=== PATIENT | female | born 1975 | race Caucasian/White ===

== ENCOUNTER 2019-03-18 14:37 | Inpatient (IN) | payer BC ==
[~2019-03-18] VITALS: Ht 144.8 cm; Wt 63.0 kg
[2019-03-18 14:49] VITALS: BP_SYST 172
--- NOTE | 2019-03-18 14:56 | NUR ---
Patient to ER bed 2 to gown for evaluation. Side rails up. Report given to Bart HANSEN.
--- NOTE | 2019-03-18 15:00 | NUR ---
Patient is awake, alert, and oriented x4. is at bedside. Patient reports that cyst started 2 weeks ago. She presents with a very large cyst in her left axila that is red in color. Pain made worse on palpation.
--- NOTE | 2019-03-18 15:29 | NUR ---
ER Dr. Stacy at bedside examining patient.
[2019-03-18] MEDS ORDERED: NACL 0.9% 2,000 ML IV ONE (15:45)
[2019-03-18] MEDS ORDERED: LIDOCAINE PF 1% 30ML(POUR BTL) INJ ONE (15:45)
[2019-03-18] MEDS ORDERED: INSULIN REGULAR, HUMAN 10 UNITS/0.1 ML INJ IVP ONE (15:45)
[2019-03-18] MEDS ORDERED: MORPHINE 4 MG/ML INJ. SYRINGE IVP ONE (15:45)
[2019-03-18] MEDS ORDERED: LIDOCAINE 1%, 20 ML MDV 20 ML ONE (16:09)
[2019-03-18 16:10] LABS: BASOPHILS # (AUTO) 0.1 K/uL (0.0-0.2); BASOPHILS % (AUTO) 0.4 % (0.0-2.0); EOSINOPHILS # (AUTO) 0.1 K/uL (0.0-0.4); EOSINOPHILS % (AUTO) 0.6 % (0.0-4.0); HEMATOCRIT 39.7 % (36-48); HEMOGLOBIN 12.8 g/dL (12.0-16.0); LYMPHOCYTES # (AUTO) 1.8 K/uL (1.0-5.5); LYMPHOCYTES % (AUTO) 11.5 % (20.5-51.5); MEAN CORPUSCULAR HEMOGLOBIN 26 pg (27-31); MEAN CORPUSCULAR HGB CONC 32 % (32-36); MEAN CORPUSCULAR VOLUME 79 fL (79.0-98.0); MONOCYTES # (AUTO) 0.8 K/uL (0.0-1.0); MONOCYTES % (AUTO) 5.5 % (1.7-9.3); NEUTROPHILS # (AUTO) 12.6 K/uL (1.8-7.7); PLATELET COUNT (AUTO) 467 K/uL (130-430); RED BLOOD CELL COUNT(AUTO) 5.01 MIL/uL (4.2-6.2); RED CELL DISTRIBUTION WIDTH 14.5 % (9.0-15.0); WHITE BLOOD COUNT (AUTO) 15.4 K/uL (4.8-10.8)
[2019-03-18 16:24] LABS: CALCIUM 9.1 mg/dL (8.4-11.0); CREATININE 0.88 mg/dL (0.55-1.30); POTASSIUM 3.5 mmol/L (3.5-5.1)
[2019-03-18 16:33] LABS: ALBUMIN 3.1 g/dL (3.4-4.8); TOTAL BILIRUBIN 0.3 mg/dL (0.0-1.0)
[2019-03-18] MEDS ORDERED: PIPERACILLIN/TAZO 3.375 GM in NS 50 ML IV ONE (17:00)
[2019-03-18] MEDS ORDERED: PIPERACILLIN/TAZOBACTAM 3.375 GM/VIAL (ZOSYN) IV ONE (17:14)
--- NOTE | 2019-03-18 18:15 | NUR ---
Patient will be admitted to [facility]. Admitted to Telemetry unit. Will go to room 125A. Summary report printed. Report will be given at bedside.
[2019-03-18 18:18] VITALS: BP_SYST 146
--- NOTE | 2019-03-18 18:18 | NUR ---
ADMISSION NOTE Received patient from ER via melvin, received report from DAPHNEY HANSEN. Patient admitted with diagnosis of AXILLARY ABCESS. Patient oriented to hospital routine, call light, toileting and safety-patient verbalized understanding.
[2019-03-18] MEDS: NACL 0.9% 1,000 ML IV SCH (18:37)
--- NOTE | 2019-03-18 19:05 | NUR ---
RN Note-closing patient resting in bed, family at bedside, no signs of distress, IV fluids running with no signs of infiltration, endorse report to noc shift nurse at the bedside to take wound pictures and do belongings inventory, all other admission interventions were done, no other needs at this time.
[2019-03-18 19:10] VITALS: BP_SYST 140
--- NOTE | 2019-03-18 19:10 | NUR ---
OPENING NOTE RECEIVED ENDORSEMENT REPORT FROM DAY NURSE MIRANDA AT BEDSIDE. PT IS AOX4. NO SOB NOTED. NO DISTRESS NOTED. CHEST RISE EVEN AND UNLABORED. NO S/S OF PAIN NOTED. PT DENIES PAIN AT THIS TIME. FAMILY AT BEDSIDE. IV CLEAN, DRY, PATENT AND INTACT. ORIENTED PT TO HOSPITAL ROOM AND HOW TO USE ROOM PHONE AND CALL LIGHT TO CALL FOR ASSISTANCE. PT VERBALIZED UNDERSTANDING. SAFETY MEASURES IN PLACE. CALL LIGHT/ROOM PHONE WITHIN REACH, BED WHEELS LOCKED, BED IN LOWEST POSITION, BED WHEELS LOCKED, SIDE RAILS UP X2, BEDSIDE TABLE WITHIN REACH. NO OTHER NEEDS AT THIS TIME. WILL CONTINUE TO MONITOR PT AND CONTINUE PT'S POC.
[2019-03-18] MEDS ORDERED: METF1000 PO (19:11)
[2019-03-18] MEDS ORDERED: GLIP10TA PO (19:11)
[2019-03-18] MEDS ORDERED: LISI10TA5 PO (19:11)
[2019-03-18] MEDS ORDERED: SIMV40TA2 PO (19:11)
[2019-03-18] MEDS ORDERED: ERGO500020 PO (19:11)
[2019-03-18] MEDS ORDERED: LEVO137T2 PO (19:11)
[2019-03-18] MEDS ORDERED: CEPH-568 PO (19:11)
[2019-03-18] MEDS ORDERED: D5W 1,000 ML IV PRN (20:26)
[2019-03-18] MEDS ORDERED: HYDROcodone/ACETAMIN 5-325 MG TAB (NORCO/ VICODIN) PO PRN (20:30)
[2019-03-18] MEDS ORDERED: GLUCOSE 15 GM GEL (in 37.5 GM TUBE) PO PRN (20:30)
[2019-03-18] MEDS ORDERED: DEXTROSE 50% JECT 50 ML DISP.SYRIN IVP PRN (20:30)
[2019-03-18] MEDS: SIMVASTATIN 40 MG TABLET PO SCH (20:44)
[2019-03-18] MEDS: INSULIN REGULAR, HUMAN 100 UNITS/ML, 10 ML VIAL (humuLIN R) SUBCUT PRN (20:48)
--- NOTE | 2019-03-18 20:59 | NUR ---
RN ROUNDS PT RESTING IN BED. NO SOB NOTED. NO DISTRESS NOTED. CHEST RISE EVEN AND UNLABORED. VITAL SIGNS WNL. SCHEDULED MEDICATIONS ADMINISTERED ORDERED, PT TOLERATED WELL. PT REPORTS 6/10 PAIN TO LEFT AXILIARY PRN NORCO ADMINISTERED ORDERED FOR PAIN. PT TOLERATED WELL. WILL MONITOR MEDICATION EFFECTIVENESS. NO OTHER NEEDS AT THIS TIME. SAFETY MEASURES IN PLACE. WILL CONTINUE TO MONITOR PT AND CONTINUE PT'S POC.
--- NOTE | 2019-03-18 22:30 | NUR ---
RN ROUNDS PT RESTING IN BED WITH EYES CLOSED. NO SOB NOTED. NO DISTRESS NOTED. CHEST RISE EVEN AND UNLABORED. NO NEEDS AT THIS TIME. SAFETY MEASURES IN PLACE. WILL CONTINUE TO MONITOR PT AND CONTINUE PT'S POC.
[2019-03-18] MEDS: PIPERACILLIN/TAZO 3.375/DEX-IS 50 ML IV SCH (23:38)
[2019-03-19 00:35] VITALS: BP_SYST 138
--- NOTE | 2019-03-19 02:30 | NUR ---
RN ROUNDS PT RESTING IN BED. NO SOB NOTED. NO DISTRESS NOTED. CHEST RISE EVEN AND UNLABORED. NO S/S OF PAIN NOTED. PT DENIES PAIN AT THIS TIME. NO NEEDS AT THIS TIME. SAFETY MEASURES IN PLACE. WILL CONTINUE TO MONITOR PT AND CONTINUE PT'S POC.
[2019-03-19 05:39] LABS: ALBUMIN 2.3 g/dL (3.4-4.8); CALCIUM 7.8 mg/dL (8.4-11.0); CREATININE 0.67 mg/dL (0.55-1.30); POTASSIUM 3.4 mmol/L (3.5-5.1); TOTAL BILIRUBIN 0.3 mg/dL (0.0-1.0)
[2019-03-19 05:55] LABS: BASOPHILS # (AUTO) 0.1 K/uL (0.0-0.2); BASOPHILS % (AUTO) 0.6 % (0.0-2.0); EOSINOPHILS # (AUTO) 0.2 K/uL (0.0-0.4); EOSINOPHILS % (AUTO) 1.4 % (0.0-4.0); HEMATOCRIT 33.9 % (36-48); HEMOGLOBIN 10.8 g/dL (12.0-16.0); LYMPHOCYTES # (AUTO) 2.7 K/uL (1.0-5.5); LYMPHOCYTES % (AUTO) 18.3 % (20.5-51.5); MEAN CORPUSCULAR HEMOGLOBIN 26 pg (27-31); MEAN CORPUSCULAR HGB CONC 32 % (32-36); MEAN CORPUSCULAR VOLUME 80 fL (79.0-98.0); MONOCYTES % (AUTO) 6.4 % (1.7-9.3); NEUTROPHILS # (AUTO) 10.8 K/uL (1.8-7.7); NEUTROPHILS % (AUTO) 73.3 % (40.0-70.0); PLATELET COUNT (AUTO) 432 K/uL (130-430); RED BLOOD CELL COUNT(AUTO) 4.24 MIL/uL (4.2-6.2); RED CELL DISTRIBUTION WIDTH 14.7 % (9.0-15.0); WHITE BLOOD COUNT (AUTO) 14.8 K/uL (4.8-10.8)
[2019-03-19] MEDS: NACL 0.9% 1,000 ML IV SCH ×2 (06:03→17:39)
[2019-03-19] MEDS: PIPERACILLIN/TAZO 3.375/DEX-IS 50 ML IV SCH ×3 (06:03→17:43)
[2019-03-19] MEDS: INSULIN REGULAR, HUMAN 100 UNITS/ML, 10 ML VIAL (humuLIN R) SUBCUT PRN ×4 (06:13→22:48)
--- NOTE | 2019-03-19 06:27 | NUR ---
BS 250 4 UN OF REGULAR INSULIN PER SLIDING SCALE PROTOCOL
--- NOTE | 2019-03-19 06:29 | NUR ---
CLOSING NOTE PT RESTING IN BED. NO SOB NOTED. NO DISTRESS NOTED. CHEST RISE EVEN AND UNLABORED. NO S/S OF PAIN NOTED. PT DENIED PAIN THROUGHOUT SHIFT. ALL NEEDS MET THROUGHOUT SHIFT. ALL SCHEDULED MEDICATIONS ADMINISTERED ORDERED. SAFETY MEASURES IN PLACE THROUGHOUT SHIFT. CALL LIGHT/ROOM PHONE WITHIN REACH, BED ALARM ON, BED WHEELS LOCKED, BED IN LOWEST POSITION, BED WHEELS LOCKED, SIDE RAILS UP X2, BEDSIDE TABLE WITHIN REACH. NO NEEDS AT THIS TIME. WILL ENDORSE PT CARE TO DAY NURSE.
--- NOTE | 2019-03-19 07:23 | NUR ---
OPENING NOTE Patient resting in the bed comfortable. No acute distress. AAO x 4. Denied of pain. Skin warm and dry to touch. IV intact to RAC, no redness, no swelling, no drainage. On NS at 100ml/hr, infusing well. Discussed the safety issue, use call light when needs help, and plan of care, verbally understanding. Safety measure maintained. Bed locked in low position, side rails up. Refused bed alarm, risk and benefit explained, verbally understanding. Call light within reached. Will continue to monitor.
[2019-03-19 07:45] VITALS: BP_SYST 148
[2019-03-19] MEDS ORDERED: POTASSIUM CHLORIDE 20 MEQ TAB.PRT.SR PO ONE (08:00)
[2019-03-19] MEDS: LEVOTHYROXINE SODIUM 0.137 MG TABLET PO SCH (09:45)
[2019-03-19] MEDS: LISINOPRIL 10 MG TABLET (PRINIVIL) PO SCH (09:45)
--- NOTE | 2019-03-19 09:45 | NUR ---
SCHEDULE MED GIVEN Patient resting in the bed. No acute distress. Denied of pain. Left axillary incision/wound, covered with clean and dry dressing. Schedule med given. Safety measure maintained. Bed locked in low position, side rails up. Call light within reached. Continue to monitor.
--- NOTE | 2019-03-19 11:00 | NUR ---
SEEN AND EXAMINED BY JUANA SHEEHAN WITH ORDER NOTED AND CARRIED OUT.
--- NOTE | 2019-03-19 11:34 | NUR ---
CONSULTATION PAGED/CALLED Reason for Consultation: [] LEFT AXILLARY ABSCESS Person Who was Notified: [] SURY Consulting Physician: [] DR DEION GAYTAN Payroll Administrator Specialty: [] ID Ordering Physician: [] DR PUENTE
--- NOTE | 2019-03-19 11:55 | NUR ---
RECEIVED THE CALL FROM DR. GAYTAN, DEION Received the from Daniele Perez regarding the consult, reported to Dr. Gaytan patient with diagnosis of left axillary abscess, I and D done in ER yesterday. Patient on Zosyn 3.375gm IVPB Q6hr. Dr. Gaytan with order of wound culture, noted and carried out. Order read back and okay to MD. Patient make aware.
[2019-03-19 12:00] VITALS: BP_SYST 132
--- NOTE | 2019-03-19 12:03 | NUR ---
SS=063 Regular insulin 6 units given per sliding scale as ordered for DY=835.
--- NOTE | 2019-03-19 14:22 | NUR ---
FAMILY VISITED Patient resting in the bed and talked to patient at bedside. Safety measure maintained. Call light within reached. Bed locked in low position, side rails up. Continue to monitor.
[2019-03-19 16:00] VITALS: BP_SYST 126
--- NOTE | 2019-03-19 16:10 | NUR ---
LEFT AXILLARY INCISION/WOUND DRESSING CHANGED AND SENT THE SAMPLE FOR WOUND CULTURE TO LAB Patient tolerated procedure well. Per patient pain was tolerable, no pain med needed. No acute distress. Sample sent to lab for wound culture. Safety measure maintained. Call light within reached. Bed locked in low position, side rails up. Continue to monitor.
--- NOTE | 2019-03-19 17:39 | NUR ---
HR=681 Regular insulin 4 units given per sliding scale as ordered for GG=602.
--- NOTE | 2019-03-19 18:52 | NUR ---
CLOSING NOTE Patient resting in the bed comfortable. No acute distress. Denied of pain. Skin warm and dry to touch. IV intact to RAC, no redness, no swelling, no drainage. On NS at 100ml/hr, infusing well. All needs met and attended. Safety measure maintained. Bed locked in low position, side rails up. Refused bed alarm, risk and benefit explained, verbally understanding. Call light within reached. Will endorse to night nurse.
[2019-03-19 21:06] VITALS: BP_SYST 131
--- NOTE | 2019-03-19 21:35 | NUR ---
PATIENT AWAKE ALERT BSG @ 300 MG DL SIX UNITS OF REGULAR INSULIN SUB Q. ADMINISTER PER SLIDING SCALE .
[2019-03-19] MEDS: SIMVASTATIN 40 MG TABLET PO SCH (22:46)
--- NOTE | 2019-03-20 | NUR ---
DR Dionna GAYTAN MD HERE TO SEE PATIENT & ASSIST @ THE BEDSIDE .
[2019-03-20] MEDS: NACL 0.9% 1,000 ML IV SCH (00:30)
[2019-03-20] MEDS: PIPERACILLIN/TAZO 3.375/DEX-IS 50 ML IV SCH ×2 (00:31→06:21)
[2019-03-20 00:43] VITALS: BP_SYST 121
[2019-03-20] MEDS ORDERED: ACETAMINOPHEN 325 MG TABLET PO PRN (01:00)
--- NOTE | 2019-03-20 01:40 | NUR ---
RIGHT ABSCESS AXILLARY CULTURE OBTAINED & SENT TO LAB PER DR LUCILA GONSALVES .
[2019-03-20] MEDS ORDERED: VANCOMYCIN HCL 1 GM/NS PREMIX 250 ML IV ONE (02:00)
--- NOTE | 2019-03-20 03:16 | NUR ---
PHOTO PICTURE TAKEN OF RIGHT AXILLA ABSCESS & PUT IN FOLDER FOR .
[2019-03-20] MEDS ORDERED: VANCOMYCIN HCL 1000 MG/VIAL IV ONE (03:29)
--- NOTE | 2019-03-20 04:05 | NUR ---
VANCOMYCIN 1 GM IVPB administer as ordered no ADVERSE reaction noted chest movement symmetrical unlabored .
[2019-03-20 05:50] LABS: BASOPHILS # (AUTO) 0.1 K/uL (0.0-0.2); BASOPHILS % (AUTO) 0.6 % (0.0-2.0); EOSINOPHILS # (AUTO) 0.2 K/uL (0.0-0.4); EOSINOPHILS % (AUTO) 1.4 % (0.0-4.0); HEMATOCRIT 32.6 % (36-48); HEMOGLOBIN 10.4 g/dL (12.0-16.0); LYMPHOCYTES # (AUTO) 2.7 K/uL (1.0-5.5); LYMPHOCYTES % (AUTO) 20.6 % (20.5-51.5); MEAN CORPUSCULAR HEMOGLOBIN 26 pg (27-31); MEAN CORPUSCULAR HGB CONC 32 % (32-36); MEAN CORPUSCULAR VOLUME 80 fL (79.0-98.0); MONOCYTES % (AUTO) 7.7 % (1.7-9.3); NEUTROPHILS # (AUTO) 9.2 K/uL (1.8-7.7); NEUTROPHILS % (AUTO) 69.7 % (40.0-70.0); PLATELET COUNT (AUTO) 420 K/uL (130-430); RED BLOOD CELL COUNT(AUTO) 4.05 MIL/uL (4.2-6.2); RED CELL DISTRIBUTION WIDTH 14.8 % (9.0-15.0); WHITE BLOOD COUNT (AUTO) 13.2 K/uL (4.8-10.8)
[2019-03-20 06:05] LABS: ALBUMIN 2.3 g/dL (3.4-4.8); CREATININE 0.61 mg/dL (0.55-1.30); POTASSIUM 3.6 mmol/L (3.5-5.1); TOTAL BILIRUBIN 0.3 mg/dL (0.0-1.0)
[2019-03-20] MEDS: INSULIN REGULAR, HUMAN 100 UNITS/ML, 10 ML VIAL (humuLIN R) SUBCUT PRN (06:35)
[2019-03-20 08:00] VITALS: BP_SYST 132
--- NOTE | 2019-03-20 08:00 | NUR ---
initial notes rec patient asleep and arousable to stimuli. ivf infusing well. no infiltration noted. dressing on the l axilla in place and noted with old blood drained. denies pain at this time. bed to the lowest position and side rails up and locked. call light within reached and knows when to call
[2019-03-20] MEDS: LISINOPRIL 10 MG TABLET (PRINIVIL) PO SCH (10:13)
[2019-03-20] MEDS: LEVOTHYROXINE SODIUM 0.137 MG TABLET PO SCH (10:13)
[2019-03-20 12:40] VITALS: BP_SYST 120
--- NOTE | 2019-03-20 13:00 | NUR ---
closing notes seen by dr nuñez and order for d/c. instructed re abx prescription and follow uo with 's appt. accopanied by family dressing changed the l axila wound and wa watching to assists patient in dressing changed. Addendum: 03/20/19 at 1651 by Breanna Gibbs RN pt went home at 1412.
[2019-03-20] MEDS ORDERED: LEVO750T45 PO (13:44)
[2019-03-20] MEDS ORDERED: CLIN300C11 PO (13:45)
[2019-03-20 13:46] VITALS: BP_SYST 120
[2019-03-20] MEDS ORDERED: VANCOMYCIN HCL 1,000 MG in NS 250 ML IV SCH (21:00)
== END 2019-03-20 14:12 | disposition home or self-care (01) | DRG 872 ==
LOC: SED 14:37 → STU 17:17 → SMU 03-19 12:00
PROVIDERS: ADMIT Internal Medicine; ATTEND Internal Medicine Hospice and Palliative Medicine
PROC: 0X953ZZ Drainage of Left Axilla, Percutaneous Approach (ICD-10-PCS; principal; 2019-03-18)
DX: A41.9 Sepsis, unspecified organism (principal); L02.412 Cutaneous abscess of left axilla; L02.411 Cutaneous abscess of right axilla; E11.65 Type 2 diabetes mellitus with hyperglycemia; E78.5 Hyperlipidemia, unspecified; L73.2 Hidradenitis suppurativa; E78.00 Pure hypercholesterolemia, unspecified; I10 Essential (primary) hypertension
CPT/HCPCS: 36415; 80053; 81002; 81025; 82962; 83036; 83605; 85025; 87040-TC; 87070-TC; 87186-TC; 96361; 96365; 96375; 99285; G0378; J1815; J2001; J2270; J2543; J3370; J7030; J7050

== ENCOUNTER 2020-05-21 19:00 | Inpatient (IN) | payer BC, SELFPAY ==
[~2020-05-21] VITALS: Ht 152.4 cm; Wt 66.2 kg
[~2020-05-21 19:00] MED LIST: CEPH-568 PO; CLIN300C11 PO; ERGO500020 PO; GLIP10TA PO; LEVO137T2 PO; LEVO750T45 PO; LISI10TA5 PO; METF1000 PO; SIMV40TA2 PO
[2020-05-21 19:21] VITALS: BP_SYST 143
[2020-05-21] MEDS ORDERED: NACL 0.9% 1,000 ML IV ONE ×2 (20:54→22:30)
[2020-05-21] MEDS ORDERED: ONDANSETRON HCL 4 MG/2 ML VIAL IVP ONE (21:00)
[2020-05-21] MEDS ORDERED: MORPHINE 2 MG/ML INJ. SYRINGE IVP ONE (21:00)
[2020-05-21 21:17] LABS: BASOPHILS # (AUTO) 0.1 K/uL (0.0-0.2); BASOPHILS % (AUTO) 0.4 % (0.0-2.0); HEMATOCRIT 37.5 % (36-48); HEMOGLOBIN 12.1 g/dL (12.0-16.0); LYMPHOCYTES % (AUTO) 10.4 % (20.5-51.5); MEAN CORPUSCULAR HEMOGLOBIN 25 pg (27-31); MEAN CORPUSCULAR HGB CONC 32 % (32-36); MEAN CORPUSCULAR VOLUME 77 fL (79.0-98.0); MONOCYTES # (AUTO) 1.8 K/uL (0.0-1.0); MONOCYTES % (AUTO) 9.3 % (1.7-9.3); NEUTROPHILS # (AUTO) 15.5 K/uL (1.8-7.7); NEUTROPHILS % (AUTO) 79.9 % (40.0-70.0); PLATELET COUNT (AUTO) 297 K/uL (130-430); RED BLOOD CELL COUNT(AUTO) 4.86 MIL/uL (4.2-6.2); RED CELL DISTRIBUTION WIDTH 14.8 % (9.0-15.0); WHITE BLOOD COUNT (AUTO) 19.4 K/uL (4.8-10.8)
[2020-05-21 21:31] LABS: PROTHROMBIN TIME 10.1 SECS (9.5-12.5)
[2020-05-21 21:32] LABS: CALCIUM 9.2 mg/dL (8.4-11.0); CREATININE 0.91 mg/dL (0.55-1.30); POTASSIUM 3.5 mmol/L (3.5-5.1)
[2020-05-21 21:37] LABS: ALBUMIN 2.7 g/dL (3.4-4.8); TOTAL BILIRUBIN 0.7 mg/dL (0.0-1.0)
[2020-05-21 22:21] LABS: FIBRINOGEN 710 mg/dL (200-400)
[2020-05-21] MEDS ORDERED: cefTRIAXone 1 GM in D5W 50 ML IV ONE (22:30)
[2020-05-21] MEDS ORDERED: VANCOMYCIN HCL 1,000 MG in NS 250 ML IV ONE (22:30)
[2020-05-21 22:37] LABS: BILIRUBIN,URINE NEGATIVE (NEGATIVE); BLOOD, URINE 3+ (NEGATIVE); CLARITY/URINE CLOUDY (CLEAR); COLOR,URINE BROWN (YELLOW); GLUCOSE,URINE 3+ (NEGATIVE); KETONES,URINE 1+ (NEGATIVE); LEUKOCYTE ESTERASE ,URINE TRACE (NEGATIVE); NITRITE, URINE POSITIVE (NEGATIVE); PROTEIN URINE 2+ (NEGATIVE)
[2020-05-21 22:44] LABS: INFLUENZA A&B ANTIGEN SCREEN NEGATIVE FOR A & B (NEGATIVE)
[2020-05-21] MEDS ORDERED: cefTRIAXone 1 GM VIAL ONE (22:53)
[2020-05-21] MEDS ORDERED: VANCOMYCIN HCL 1000 MG/VIAL IV ONE (22:53)
[2020-05-21 22:59] LABS: BACTERIA,URINE MANY /HPF (None Seen); RBC,URINE 50-80 /HPF (0-3)
[2020-05-21 23:00] LABS: YEAST,URINE Few /HPF (None Seen)
[2020-05-21] MEDS ORDERED: ENOXAPARIN SODIUM 60 MG/0.6 ML SYRINGE SUBCUT ONE (23:15)
[2020-05-22] VITALS (7 sets, daily range): BP systolic 107–145
[2020-05-22] MEDS ORDERED: HYDROcodone/ACETAMIN 5-325 MG TAB (NORCO/ VICODIN) PO PRN (00:15)
[2020-05-22] MEDS ORDERED: NALOXONE HCL 0.4 MG/ML AMP (NARCAN) IVP PRN ×2 (00:15)
[2020-05-22] MEDS: NACL 0.9% 1,000 ML IV SCH ×3 (00:45→14:15)
[2020-05-22] MEDS: MORPHINE 2 MG/ML INJ. SYRINGE IVP PRN ×2 (01:45→09:29)
[2020-05-22] MEDS: INSULIN REGULAR, HUMAN 100 UNITS/ML, 10 ML VIAL (humuLIN R) SUBCUT PRN ×2 (06:26→12:19)
[2020-05-22] MEDS: LEVOTHYROXINE SODIUM 0.137 MG TABLET PO SCH ×2 (06:28→09:00)
[2020-05-22 06:42] LABS: BASOPHILS # (AUTO) 0.1 K/uL (0.0-0.2); BASOPHILS % (AUTO) 0.4 % (0.0-2.0); EOSINOPHILS % (AUTO) 0.1 % (0.0-4.0); HEMATOCRIT 31.1 % (36-48); HEMOGLOBIN 10.1 g/dL (12.0-16.0); LYMPHOCYTES # (AUTO) 3.2 K/uL (1.0-5.5); LYMPHOCYTES % (AUTO) 14.3 % (20.5-51.5); MEAN CORPUSCULAR HEMOGLOBIN 26 pg (27-31); MEAN CORPUSCULAR HGB CONC 33 % (32-36); MEAN CORPUSCULAR VOLUME 79 fL (79.0-98.0); MONOCYTES # (AUTO) 2.3 K/uL (0.0-1.0); MONOCYTES % (AUTO) 10.3 % (1.7-9.3); NEUTROPHILS # (AUTO) 16.8 K/uL (1.8-7.7); NEUTROPHILS % (AUTO) 74.9 % (40.0-70.0); PLATELET COUNT (AUTO) 264 K/uL (130-430); RED BLOOD CELL COUNT(AUTO) 3.94 MIL/uL (4.2-6.2); RED CELL DISTRIBUTION WIDTH 14.9 % (9.0-15.0); WHITE BLOOD COUNT (AUTO) 22.4 K/uL (4.8-10.8)
[2020-05-22 07:21] LABS: CALCIUM 7.8 mg/dL (8.4-11.0); POTASSIUM 3.6 mmol/L (3.5-5.1)
[2020-05-22 07:22] LABS: CREATININE 0.78 mg/dL (0.55-1.30)
[2020-05-22 07:25] LABS: TOTAL BILIRUBIN 0.3 mg/dL (0.0-1.0)
[2020-05-22 07:26] LABS: ALBUMIN 2.1 g/dL (3.4-4.8)
[2020-05-22] MEDS ORDERED: cefTRIAXone 1 GM IVPB PREMIX 50 ML IV SCH (09:00)
[2020-05-22] MEDS: ENOXAPARIN SODIUM 40 MG/0.4 ML SYRINGE SUBCUT SCH (09:19)
[2020-05-22] MEDS: LISINOPRIL 10 MG TABLET (PRINIVIL) PO SCH (09:20)
[2020-05-22] MEDS: glipiZIDE XL 5 MG TAB ( GLUCOTROL XL) PO SCH ×2 (09:20→21:01)
[2020-05-22] MEDS: AZITHROMYCIN 500 MG in NS 250 ML IV SCH (12:17)
[2020-05-22] MEDS: PIPERACILLIN/TAZO 4.5GM/DEX-IS 100 ML IV SCH ×2 (14:15→21:02)
[2020-05-22] MEDS ORDERED: SIMVASTATIN 40 MG TABLET PO SCH (21:00)
[2020-05-22] MEDS ORDERED: ONDANSETRON HCL 4 MG/2 ML VIAL IVP ONE (22:00)
[2020-05-23] VITALS: BP_SYST 110
[2020-05-23] MEDS: NACL 0.9% 1,000 ML IV SCH ×2 (00:09→05:26)
[2020-05-23 04:00] VITALS: BP_SYST 115
[2020-05-23] MEDS: PIPERACILLIN/TAZO 4.5GM/DEX-IS 100 ML IV SCH (05:26)
[2020-05-23] MEDS: LEVOTHYROXINE SODIUM 0.137 MG TABLET PO SCH (06:15)
[2020-05-23] MEDS: INSULIN REGULAR, HUMAN 100 UNITS/ML, 10 ML VIAL (humuLIN R) SUBCUT PRN (06:33)
[2020-05-23 07:02] LABS: BASOPHILS # (AUTO) 0.1 K/uL (0.0-0.2); BASOPHILS % (AUTO) 0.5 % (0.0-2.0); EOSINOPHILS # (AUTO) 0.1 K/uL (0.0-0.4); EOSINOPHILS % (AUTO) 0.5 % (0.0-4.0); HEMATOCRIT 30.4 % (36-48); HEMOGLOBIN 9.9 g/dL (12.0-16.0); LYMPHOCYTES # (AUTO) 2.4 K/uL (1.0-5.5); LYMPHOCYTES % (AUTO) 14.5 % (20.5-51.5); MEAN CORPUSCULAR HEMOGLOBIN 26 pg (27-31); MEAN CORPUSCULAR HGB CONC 33 % (32-36); MEAN CORPUSCULAR VOLUME 79 fL (79.0-98.0); MONOCYTES # (AUTO) 1.4 K/uL (0.0-1.0); MONOCYTES % (AUTO) 8.6 % (1.7-9.3); NEUTROPHILS # (AUTO) 12.5 K/uL (1.8-7.7); NEUTROPHILS % (AUTO) 75.9 % (40.0-70.0); PLATELET COUNT (AUTO) 304 K/uL (130-430); RED BLOOD CELL COUNT(AUTO) 3.87 MIL/uL (4.2-6.2); RED CELL DISTRIBUTION WIDTH 15.1 % (9.0-15.0); WHITE BLOOD COUNT (AUTO) 16.5 K/uL (4.8-10.8)
[2020-05-23 07:30] LABS: CALCIUM 7.8 mg/dL (8.4-11.0); CREATININE 0.86 mg/dL (0.55-1.30); POTASSIUM 3.2 mmol/L (3.5-5.1); TOTAL BILIRUBIN 0.4 mg/dL (0.0-1.0)
[2020-05-23 07:50] LABS: TOTAL IRON BIND. CAPACITY 275 ug/dL (250-450)
[2020-05-23 08:00] VITALS: BP_SYST 120
[2020-05-23 08:09] LABS: C-REACTIVE PROTEIN QUANT 14.5 mg/dL (0-0.5)
[2020-05-23] MEDS: glipiZIDE XL 5 MG TAB ( GLUCOTROL XL) PO SCH (09:38)
[2020-05-23] MEDS: LISINOPRIL 10 MG TABLET (PRINIVIL) PO SCH (09:39)
[2020-05-23] MEDS: ENOXAPARIN SODIUM 40 MG/0.4 ML SYRINGE SUBCUT SCH (09:40)
[2020-05-23] MEDS ORDERED: POTASSIUM CHLORIDE 20 MEQ TAB.PRT.SR PO ONE (11:45)
[2020-05-23 12:00] VITALS: BP_SYST 141
[2020-05-23] MEDS ORDERED: FLUCONAZOLE 100 mg/ NS 50 ML IV SCH (12:00)
[2020-05-23] MEDS ORDERED: POTASSIUM CHLORIDE 20 MEQ TAB.PRT.SR ONE (12:16)
[2020-05-23 13:10] VITALS: BP_SYST 141
[2020-05-23] MEDS: AZITHROMYCIN 500 MG in NS 250 ML IV SCH (13:10)
[2020-05-24 11:06] LABS: FOLATE (FOLIC ACID) 13.1 ng/mL (>3.0)
== END 2020-05-23 14:30 | disposition home or self-care (01) | DRG 872 ==
LOC: SED 19:00 → STU 23:15
PROVIDERS: ADMIT Internal Medicine Hospice and Palliative Medicine; ATTEND Internal Medicine Hospice and Palliative Medicine
DX: A41.9 Sepsis, unspecified organism (principal); N12 Tubulo-interstitial nephritis, not specified as acute or chronic; E03.9 Hypothyroidism, unspecified; E11.9 Type 2 diabetes mellitus without complications; E78.5 Hyperlipidemia, unspecified; I10 Essential (primary) hypertension; K52.9 Noninfective gastroenteritis and colitis, unspecified; Z20.828 Contact with and (suspected) exposure to other viral communicable diseases; Z83.3 Family history of diabetes mellitus; Z90.49 Acquired absence of other specified parts of digestive tract; Z98.891 History of uterine scar from previous surgery
CPT/HCPCS: 36415; 70450-TC; 71045; 76770; 80053; 81000-TC; 82150-TC; 82607; 82728; 82746; 82962; 83540-TC; 83550-TC; 83605; 83690-TC; 85025; 85379; 85384-TC; 85610-TC; 86140; 86710; 87040-TC; 87086; 87186-TC; 96361; 96365; 96368; 96372; 96375; 99285; G0378; J0456; J0696; J1450; J1650; J1815; J2270; J2405; J2543; J3370; J7030; J7050; U0003-CS

== ENCOUNTER 2020-11-22 14:18 | Emergency (ER) | payer BC, SELFPAY ==
[~2020-11-22] VITALS: Ht 144.8 cm; Wt 66.2 kg
[~2020-11-22 14:18] MED LIST changes: -CEPH-568 PO; -CLIN300C11 PO; -LEVO750T45 PO
[2020-11-22 14:34] VITALS: BP_SYST 161
[2020-11-22 15:17] LABS: BASOPHILS # (AUTO) 0.1 K/uL (0.0-0.2); BASOPHILS % (AUTO) 0.9 % (0.0-2.0); EOSINOPHILS # (AUTO) 0.1 K/uL (0.0-0.4); EOSINOPHILS % (AUTO) 1.1 % (0.0-4.0); HEMATOCRIT 35.1 % (36-48); HEMOGLOBIN 11.6 g/dL (12.0-16.0); LYMPHOCYTES # (AUTO) 2.4 K/uL (1.0-5.5); LYMPHOCYTES % (AUTO) 25.1 % (20.5-51.5); MEAN CORPUSCULAR HEMOGLOBIN 26 pg (27-31); MEAN CORPUSCULAR HGB CONC 33 % (32-36); MEAN CORPUSCULAR VOLUME 78 fL (79.0-98.0); MONOCYTES # (AUTO) 0.8 K/uL (0.0-1.0); MONOCYTES % (AUTO) 7.8 % (1.7-9.3); NEUTROPHILS # (AUTO) 6.3 K/uL (1.8-7.7); NEUTROPHILS % (AUTO) 65.1 % (40.0-70.0); PLATELET COUNT (AUTO) 405 K/uL (130-430); RED BLOOD CELL COUNT(AUTO) 4.48 MIL/uL (4.2-6.2); WHITE BLOOD COUNT (AUTO) 9.7 K/uL (4.8-10.8)
[2020-11-22 15:26] LABS: BILIRUBIN,URINE NEGATIVE (NEGATIVE); BLOOD, URINE 3+ (NEGATIVE); CLARITY/URINE SL CLOUDY (CLEAR); COLOR,URINE YELLOW (YELLOW); GLUCOSE,URINE 3+ (NEGATIVE); KETONES,URINE NEGATIVE (NEGATIVE); LEUKOCYTE ESTERASE ,URINE NEGATIVE (NEGATIVE); NITRITE, URINE POSITIVE (NEGATIVE); PH,URINE 5.5 (5.0-8.0); PROTEIN URINE TRACE (NEGATIVE); UROBILINOGEN,URINE 0.2 (0.2-1.0)
[2020-11-22 15:51] LABS: BACTERIA,URINE MODERATE /HPF (None Seen); WBC,URINE 0-3 /HPF (0-3)
[2020-11-22 16:12] LABS: ALBUMIN 3.5 g/dL (3.4-4.8); CALCIUM 8.6 mg/dL (8.4-11.0); CREATININE 0.89 mg/dL (0.55-1.30); POTASSIUM 4.1 mmol/L (3.5-5.1); TOTAL BILIRUBIN 0.5 mg/dL (0.0-1.0)
[2020-11-22] MEDS ORDERED: MORPHINE 4 MG/ML INJ. SYRINGE IVP ONE (16:30)
[2020-11-22] MEDS ORDERED: NACL 0.9% 1,000 ML IV ONE ×2 (16:30)
[2020-11-22] MEDS ORDERED: ONDANSETRON HCL 4 MG/2 ML VIAL IVP ONE (16:30)
[2020-11-22] MEDS ORDERED: cefTRIAXone 1 GM in D5W 50 ML IV ONE (17:45)
[2020-11-22] MEDS ORDERED: cefTRIAXone 1 GM VIAL ONE (17:53)
[2020-11-22] MEDS ORDERED: CEPH-568 PO (18:44)
[2020-11-22 18:57] VITALS: BP_SYST 148
== END 2020-11-22 18:57 | disposition home or self-care (01) ==
LOC: SED 14:38
DX: N39.0 Urinary tract infection, site not specified (principal); R10.30 Lower abdominal pain, unspecified; I10 Essential (primary) hypertension; E11.9 Type 2 diabetes mellitus without complications; E03.9 Hypothyroidism, unspecified; E78.5 Hyperlipidemia, unspecified; Z90.49 Acquired absence of other specified parts of digestive tract; Z79.899 Other long term (current) drug therapy
CPT/HCPCS: 36415; 74176; 80053; 81000; 83605; 83690; 84702; 85025; 96361; 96365; 96375; 99284; J0696; J2270; J2405; J7030

== ENCOUNTER 2024-01-11 22:33 | Emergency (ER) | payer BC ==
[~2024-01-11] VITALS: Ht 152.4 cm; Wt 59.4 kg
[~2024-01-11 22:33] MED LIST changes: +CEPH-568 PO; +LISI10TA29 PO; -LISI10TA5 PO; +SIMV-345 PO; -SIMV40TA2 PO
[2024-01-11 22:37] VITALS: BP_SYST 138; PULSE 76; RESP 16; TEMP 96.4; O2SAT 94
[2024-01-11] MEDS: KETOROLAC TROMETHAMINE 60 MG/2 ML VIAL IM ONE (23:08)
[2024-01-11] MEDS ORDERED: CIPR500T5 PO (23:19)
[2024-01-11 23:40] VITALS: BP_SYST 117; PULSE 77; RESP 13; TEMP 97.4; O2SAT 96
== END 2024-01-11 23:40 | disposition home or self-care (01) ==
LOC: SED 22:33
DX: N39.0 Urinary tract infection, site not specified (principal); R53.1 Weakness; I10 Essential (primary) hypertension; E11.9 Type 2 diabetes mellitus without complications; E78.5 Hyperlipidemia, unspecified; E03.9 Hypothyroidism, unspecified; Z90.49 Acquired absence of other specified parts of digestive tract; Z98.890 Other specified postprocedural states
CPT/HCPCS: 99283; 96372; J1885